=== PATIENT | female | born 1965 | race Caucasian/White ===

== ENCOUNTER → 2017-09-11 08:09 | Outpatient (CLI) | payer OTHER, SELFPAY ==
[2017-09-11 11:22] LABS: Hematocrit 37.6 % (37-47); Hemoglobin 12.5 g/dl (12.0-15.0); Mean Corp Hgb Conc 33.2 g/gl (32-36); Mean Corpuscular Hgb 31.5 pg (27.0-32.0); Mean Corpuscular Volume 94.7 fL (81-99); Mean Platelet Vol. 10.9 fl (6.2-12.0); Platelet Count 258 K/mm3 (150-450); RBC Distribution Width CV 12.9 % (11.6-14.6); RBC Distribution Width SD 43.9 fl (35.1-43.9); Red Blood Count 3.97 M/mm3 (4.2-5.4); Scan Indicated on CBC? Y/N NO; White Blood Count 5.1 K/mm3 (4.4-11.0)
[2017-09-11 11:34] LABS: Anion Gap 7 (5-15); BUN 20 mg/dL (7-18); BUN/Creat Ratio 23.5 RATIO (10-20); Calcium,Total 8.6 mg/dL (8.5-10.1); Chloride 104 mmol/L (98-107); Cholesterol 167 mg/dL (200); Creatinine, Serum 0.85 mg/dL (0.55-1.02); EST Glomerular Filtration Rate 74 mL/min (>60); Est Glom Filt Rate - Afr Amer 90 mL/min (>60); Glucose 92 mg/dL (74-106); High Density Lipoprotein 57 mg/dL; Potassium 3.6 mmol/L (3.5-5.1); Sodium Level 139 mmol/L (136-145); Triglycerides 86 mg/dL; Very Low Density Lipoprotein 17 mg/dL (5-40)
[2017-09-11 13:52] LABS: Estradiol 302.6 pg/mL; Free T3 2.8 pg/mL (2.18-3.98); T4 Free Direct 1.26 ng/dL (0.76-1.46); Thyroid Stim Hormone (TSH) 1.44 uIU/mL (0.358-3.74)
[2017-09-11 13:57] LABS: Hemoglobin A1c 5.5 % (4.2-6.3)
[2017-09-12 07:12] LABS: DHEA Sulfate 96.6 ug/dL (41.2-243.7)
[2017-09-12 09:12] LABS: Vitamin D,25 Hydroxy 19.4 ng/mL (19.95-100.01)
[2017-09-12 10:28] LABS: Progesterone Level 3.06 ng/mL (See Comment)
== END ==
PROVIDERS: Family Provider Family Medicine; PCP Family Medicine; Visit Provider Obstetrics & Gynecology
DX: Z00.00 Encounter for general adult medical examination without abnormal findings (principal); R53.83 Other fatigue
CPT/HCPCS: 36415; 80048; 80061; 82306; 82533; 82627; 82670; 83036; 84144; 84403; 84439; 84443; 84481; 85027; 82626

== ENCOUNTER → 2017-09-24 19:59 | Outpatient (CLI) | payer OTHER, SELFPAY ==
[2017-09-27 13:51] LABS: HPV Reflexed? NOT INDICATED
== END ==
PROVIDERS: Family Provider Family Medicine; PCP Family Medicine; Visit Provider Obstetrics & Gynecology
DX: Z12.4 Encounter for screening for malignant neoplasm of cervix (principal)
CPT/HCPCS: 88175; G0145

== ENCOUNTER → 2018-01-24 15:40 | Outpatient (CLI) | payer OTHER, SELFPAY ==
[2018-01-24 17:24] LABS: Estradiol 51.6 pg/mL
[2018-01-25 08:44] LABS: Progesterone Level 4.92 ng/mL (See Comment)
== END ==
PROVIDERS: Visit Provider Obstetrics & Gynecology
DX: N93.8 Other specified abnormal uterine and vaginal bleeding (principal)
CPT/HCPCS: 36415; 82670; 84144

== ENCOUNTER 2018-02-26 05:40 | Day surgery (SDC) | payer OTHER, SELFPAY ==
[2018-02-26] VITALS (11 sets, daily range): BP systolic 91–133; BP diastolic 42–75; PULSE 50–69; RESP 18; TEMP 36.4–36.8; O2SAT 95–100; BMI 24.6
--- NOTE | 2018-02-26 06:12 | HP.PCM_ITS ---
Problem List (1) Family history of malignant neoplasm of colon in first degree relative diagnosed when younger than 60 years of age Status: Acute Comment: Sister (2) Hypothyroidism (acquired) Status: Acute History of Present Illness Date of Admission: 02/26/18 The patient is a 52 year old F who had a previous colonoscopy January 2013. She had a sister who had colon cancer resected. The sister was younger than age 60. The patient herself has no abdominal pain. No bright red blood per rectum or melena. She is enjoying a good quality of life. Chronic medical issue only includes hypothyroidism.] Past Medical History Allergies doxycycline Adverse Reaction (Verified 02/25/18 12:02) Unknown Home Medications: Ambulatory Orders Medication Instructions Recorded Calcium (Elemental) [Os-Rocael 500] 500 mg PO DAILY@0800 02/25/18 Levothyroxine [Synthroid] 75 mcg PO DAILY 02/25/18 Multivitamin [Multiple Vitamins] 1 each PO DAILY 02/25/18 Progesterone,Micronized 45 mg PO DAILY 02/25/18 [Prometrium] Smoking Status: Never smoker Tobacco Use: Non-smoker - *Family History Sibling History Items: Cancer - Sister with colon cancer Review of Systems Constitutional: Denies: Anorexia Eyes: Denies: Blurred vision HEENT: Denies: Difficulty Hearing Cardiovascular: Denies: Chest Pain Respiratory: Denies: Cough Gastrointestinal: Denies: Abdominal Pain Genitourinary: Denies: Dysuria Musculoskeletal: Denies: Arm Pain Neurological: Denies: Balance problems Psychiatric: Denies: Anxiety Endocrine: Denies: Change in Body Habitus Hematologic/ Lymphatic: Denies: Adenopathy VTE Information - Inpt Only VTE Present on Admission: No Patient Problems: Active and Suspected Problems Family history of malignant neoplasm of colon in first degree relative diagnosed when younger than 60 years of age (Acute) Sister Hypothyroidism (acquired) (Acute) - Physical Exam General: Alert, Oriented x3, Cooperative, No apparent distress HEENT: Atraumatic Oral: Moist Mucosa Neck: Supple Lungs: Clear to auscultation Cardiovascular: Regular rate, Regular Rhythm Abdomen: Bowel Sounds Present, Soft, Non Tender, Non-Distended, No Hepato- splenomegaly Extremities: No clubbing, No edema Skin: No rashes Musculoskeletal: No Tenderness to Palpation of Joints or Extremities Lymphatic: No Cervical, Supraclavicular, or Inguinal Adenopathy Neurological: Cranial nerves II-XII grossly intact Psych/Mental Status: Normal Affect Assessment/Plan All Active Problems Family history of malignant neoplasm of colon in first degree relative diagnosed when younger than 60 years of age (Acute) Hypothyroidism (acquired) (Acute) I am recommending to the patient a screening colonoscopy based upon direct family members sibling who had colon cancer. The patient is aware of the technique, benefits, risks, alternatives. She has had an opportunity to ask and have questions answered. We will proceed as indicated. Arik Hamilton M.D., F.A.C.S.
--- NOTE | 2018-02-26 06:56 | PCM.OPRPT ---
Problem List (1) Family history of malignant neoplasm of colon in first degree relative diagnosed when younger than 60 years of age Status: Acute Comment: Sister (2) Hypothyroidism (acquired) Status: Acute Report of Operation Date of Procedure: 02/26/18 Pre-Operative Diagnosis: Family history of colon cancer in a sister Post-Operative Diagnosis: Normal colon, tortuous Surgery/Procedure Performed:: Colonoscopy Description of Surgical Findings:: Timeout and informed consent was obtained. 52-year-old female was taken to the endoscopy suite. She was placed in a left lateral decubitus position. Throughout the procedure in aliquots she received total 150 mg of Demerol and 5 g of Versed is intravenous sedation. Digital rectal exam demonstrated mild grade 1-2 internal and external hemorrhoids. No mass lesions. Normal anal tone. Flexible colonoscope was in the rectum advanced with tortuous sigmoid colon with a pending definitive sigmoid loop. The scope was advanced through the descending colon and the transverse colon transabdominal pressure and increased medications required to get the scope to go through the ascending colon and cecum. Fortunately the cecum ileocecal valve area that was nicely achieved photographs were obtained. Bowel prep was good with liquid stool that could be easily aspirated. The scope was carefully withdrawn from the cecum ascending colon transverse colon descending colon and sigmoid colon. There were no mucosal abnormalities identified. Patient has a very snout rectum. Retroflexed view was not possible. Antegrade view was felt to be quite good. Excess fluid and air was aspirated free the procedure was completed she tolerated it well. Impression Normal colonoscopy examination albeit for tortuous colon. Previous colonoscopy January 2013. Next colonoscopy recommended in 5 years. The scope was inserted 0632. The cecum was reached at 0645. The procedure was completed at 0653. Cc: Dr. oLc Hamilton M.D., F.A.C.S. Type of Anesthesia:: IV Sedation
== END 2018-02-26 07:32 | disposition home or self-care (01) ==
LOC: EN 05:40 → AC 05:42
PROVIDERS: Family Provider Family Medicine; PCP Family Medicine; Visit Provider Surgery
PROC: 0DJD8ZZ Inspection of Lower Intestinal Tract, Via Natural or Artificial Opening Endoscopic (ICD-10-PCS; CPT 45378; principal; 2018-02-26 06:25)
DX: Z12.11 Encounter for screening for malignant neoplasm of colon (principal); K64.1 Second degree hemorrhoids; K64.4 Residual hemorrhoidal skin tags; Z80.0 Family history of malignant neoplasm of digestive organs; E03.9 Hypothyroidism, unspecified
CPT/HCPCS: 45378; 99152; 99153; J7120

== ENCOUNTER → 2018-06-04 13:54 | Outpatient (CLI) | payer OTHER, SELFPAY ==
--- NOTE | 2018-06-04 13:58 | BI_ITS ---
MAMMOGRAPHY - BILATERAL DIAGNOSTIC REASON FOR EXAM: Female, 52 years old. One-month history of left breast lump. PERTINENT HISTORY: Non-contributory. TECHNIQUE: Digital bilateral breast irais (3D mammographic acquisition) in the CC and MLO projections. 2-D mediolateral oblique (MLO) and craniocaudad (CC) views of both breasts were obtained. CAD: Full Field Digital Mammography with Computer Added Detection was performed. COMPARISON: Comparison is made with prior study dated July 04, 2017 and June 16, 2016. FINDINGS: Breast Composition: The breasts are heterogeneously dense, which may obscure small masses. There are no dominant masses or suspicious calcifications. Stable 1.7 cm lymph node in the left axillary region. No other significant abnormalities are identified. There has been no significant change since the prior study. BI/DIAG MAMM W/CAD, BILAT IMPRESSION: Stable bilateral diagnostic mammogram. With the patient's history of a left breast lump, correlation with ultrasound is recommended. ASSESSMENT CATEGORY: BIRADS Category 0: Incomplete. Need additional imaging evaluation. A letter regarding these results will be sent to the patient by the facility within 30 days. Approximately 10% of breast cancers are not detected by mammography. A normal mammogram should not delay biopsy of a clinically suspicious abnormality. Electronically Signed: Luis Enrique Dennis MD at 15:40 EST Tel [phone], Service support ,
--- NOTE | 2018-06-04 13:58 | BI_ITS ---
MAMMOGRAPHY - BILATERAL DIAGNOSTIC REASON FOR EXAM: Female, 52 years old. One-month history of left breast lump. PERTINENT HISTORY: Non-contributory. TECHNIQUE: Digital bilateral breast robb (3D mammographic acquisition) in the CC and MLO projections. 2-D mediolateral oblique (MLO) and craniocaudad (CC) views of both breasts were obtained. CAD: Full Field Digital Mammography with Computer Added Detection was performed. COMPARISON: Comparison is made with prior study dated July 04, 2017 and June 16, 2016. FINDINGS: Breast Composition: The breasts are heterogeneously dense, which may obscure small masses. There are no dominant masses or suspicious calcifications. Stable 1.7 cm lymph node in the left axillary region. No other significant abnormalities are identified. There has been no significant change since the prior study. BI/Bilat Brst Rbob Stand Alone IMPRESSION: Stable bilateral diagnostic mammogram. With the patient's history of a left breast lump, correlation with ultrasound is recommended. ASSESSMENT CATEGORY: BIRADS Category 0: Incomplete. Need additional imaging evaluation. A letter regarding these results will be sent to the patient by the facility within 30 days. Approximately 10% of breast cancers are not detected by mammography. A normal mammogram should not delay biopsy of a clinically suspicious abnormality. Electronically Signed: Luis Enrique Dennis MD at 15:40 EST Tel [phone], Service support ,
--- NOTE | 2018-06-04 15:00 | US_ITS ---
STUDY: ULTRASOUND BREAST - LEFT REASON FOR EXAM: Female, 52 years old. Palpable lump left breast. TECHNIQUE: Axial and longitudinal images of the LEFT breast were performed with a high resolution ultrasound transducer. COMPARISON: Comparison is made with prior mammogram done earlier today. FINDINGS: LEFT Breast: The upper outer quadrant of the left breast was examined by ultrasound. There is dense fibroglandular tissue. No solid or cystic mass lesion is seen. US/Breast Limited Unilateral IMPRESSION: No sonographic abnormality is seen. ASSESSMENT CATEGORY: BIRADS Category 1: Negative. A letter regarding these results will be sent to the patient by the facility within 30 days. Electronically Signed: Luis Enrique Dennis MD at 15:29 EST Tel [phone], Service support ,
== END ==
PROVIDERS: Family Provider Family Medicine; PCP Family Medicine; Visit Provider Obstetrics & Gynecology
DX: N63.0 Unspecified lump in unspecified breast (principal)
CPT/HCPCS: 76642; 77062; 77066; G0279

== ENCOUNTER → 2018-09-25 09:54 | Outpatient (CLI) | payer OTHER, SELFPAY ==
[2018-06-11 14:58] VITALS: BMI 24.3
[2018-09-25 16:04] LABS: Hematocrit 40.2 % (37-47); Hemoglobin 13.4 g/dl (12.0-15.0); Mean Corp Hgb Conc 33.3 g/gl (32-36); Mean Corpuscular Hgb 32.1 pg (27.0-32.0); Mean Corpuscular Volume 96.2 fL (81-99); Mean Platelet Vol. 11.2 fl (6.2-12.0); Platelet Count 258 K/mm3 (150-450); RBC Distribution Width CV 12.3 % (11.6-14.6); RBC Distribution Width SD 42.1 fl (35.1-43.9); Red Blood Count 4.18 M/mm3 (4.2-5.4); White Blood Count 3.6 K/mm3 (4.4-11.0)
[2018-09-25 16:05] LABS: Scan Indicated on CBC? Y/N NO
[2018-09-25 16:12] LABS: Estradiol 59.1 pg/mL
[2018-09-25 16:22] LABS: ALB/GLOB Ratio 1.3 RATIO (0.9-2.4); AST(SGOT) 23 U/L (15-37); Alanine Aminotransfer ALT/SGPT 26 U/L (13-56); Albumin, Serum 4.2 g/dL (3.2-5.0); Alkaline Phosphatase 72 U/L (45-117); Anion Gap 7 (5-15); BUN 18 mg/dL (7-18); BUN/Creat Ratio 19.5 RATIO (10-20); Chloride 105 mmol/L (98-107); Cholesterol 190 mg/dL (200); Creatinine, Serum 0.92 mg/dL (0.55-1.02); EST Glomerular Filtration Rate 67 mL/min (>60); Est Glom Filt Rate - Afr Amer 81 mL/min (>60); Globulin 3.3 g/dL (2.2-4.2); Glucose 92 mg/dL (74-106); High Density Lipoprotein 66 mg/dL; Protein, Total 7.5 g/dL (6.4-8.2); Sodium Level 141 mmol/L (136-145); T4 Free Direct 1.31 ng/dL (0.76-1.46); Thyroid Stim Hormone (TSH) 1.02 uIU/mL (0.358-3.74); Triglycerides 51 mg/dL; Very Low Density Lipoprotein 10 mg/dL (5-40)
[2018-09-25 16:25] LABS: Vitamin D,25 Hydroxy 37.2 ng/mL (29.95-100.01)
[2018-09-29 10:07] LABS: HPV Reflexed? NOT INDICATED
== END ==
PROVIDERS: Family Provider Family Medicine; PCP Family Medicine; Visit Provider Obstetrics & Gynecology
DX: Z00.00 Encounter for general adult medical examination without abnormal findings (principal); N93.8 Other specified abnormal uterine and vaginal bleeding; E03.9 Hypothyroidism, unspecified; E55.9 Vitamin D deficiency, unspecified; Z12.4 Encounter for screening for malignant neoplasm of cervix
CPT/HCPCS: 36415; 80053; 80061; 82306; 82670; 84144; 84439; 84443; 85027; 88175; G0145

== ENCOUNTER → 2019-01-02 | Outpatient (CLI) | payer OTHER, SELFPAY ==
[2019-01-02 13:19] LABS: Progesterone Level 6.46 ng/mL (See Comment)
[2019-01-02 13:23] LABS: Estradiol 112.1 pg/mL
== END | disposition home or self-care (01) ==
PROVIDERS: Family Provider Family Medicine; PCP Family Medicine; Visit Provider Obstetrics & Gynecology
DX: R53.83 Other fatigue (principal); F39 Unspecified mood [affective] disorder
CPT/HCPCS: 36415; 82670; 84144

== ENCOUNTER 2021-09-15 12:30 | Outpatient (CLI) | payer SELFPAY ==
--- NOTE | 2021-09-15 12:46 | BI_ITS ---
MAMMOGRAPHY - BILATERAL SCREENING REASON FOR EXAM: Female, 55 years old. Routine annual screening examination. PERTINENT HISTORY: Non-contributory. TECHNIQUE: Digital bilateral breast nery (3D mammographic acquisition) in the CC and MLO projections. 2-D mediolateral oblique (MLO) and craniocaudad (CC) views of both breasts were obtained. CAD: Full Field Digital Mammography with Computer Added Detection was performed. COMPARISON: Comparison is made with prior examination dated 02/12/2020 and 06/04/2018. FINDINGS: Breast Composition: The breasts are heterogeneously dense, which may obscure small masses. There are no dominant masses or suspicious calcifications. A tissue clip marker is seen in the deep upper central portion of the left breast as well as in the anterior lateral aspect of the right breast. Stable appearance of the fat-containing left axillary lymph nodes. No other significant abnormalities are identified. BI/SCRN MAMM (CAD)W/NERY BILAT IMPRESSION: Stable bilateral screening mammogram. Yearly follow-up mammogram recommended. (A) ASSESSMENT CATEGORY: BIRADS Category 2: Benign. A letter regarding these results will be sent to the patient by the facility within 30 days. Approximately 10% of breast cancers are not detected by mammography. A normal mammogram should not delay biopsy of a clinically suspicious abnormality. [id number] Electronically Signed: Luis Enrique Dennis MD at 14:06 EST ,
== END 2021-09-15 23:59 | disposition home or self-care (01) ==
PROVIDERS: PCP Family Medicine; Referring Provider Nurse Practitioner Family; Visit Provider Nurse Practitioner Family
DX: Z12.31 Encounter for screening mammogram for malignant neoplasm of breast (principal)
CPT/HCPCS: 77063; 77067

== ENCOUNTER → 2022-09-19 | Outpatient (CLI) | payer SELFPAY ==
--- NOTE | 2022-09-19 09:32 | BI_ITS ---
MAMMOGRAPHY - BILATERAL SCREENING REASON FOR EXAM: Female, 56 years old. Routine annual screening examination. PERTINENT HISTORY: Non-contributory. TECHNIQUE: Digital bilateral breast nery (3D mammographic acquisition) in the CC and MLO projections. 2-D mediolateral oblique (MLO) and craniocaudad (CC) views of both breasts were obtained. CAD: Full Field Digital Mammography with Computer Added Detection was performed. COMPARISON: Comparison is made with prior study dated 09/15/2021 and 06/04/2018. FINDINGS: Breast Composition: The breasts are heterogeneously dense, which may obscure small masses. There are no dominant masses or suspicious calcifications. A tissue clip marker is once again seen in the deep upper central portion of the left breast as well as in the anterior lateral aspect of the right breast. Stable benign-appearing left axillary lymph node. No other significant abnormalities are identified. There has been no significant change since the prior study. BI/SCRN MAMM (CAD)W/NERY BILAT IMPRESSION: Stable bilateral screening mammogram. Yearly follow-up mammogram recommended. (A) ASSESSMENT CATEGORY: BIRADS Category 2: Benign. A letter regarding these results will be sent to the patient by the facility within 30 days. Approximately 10% of breast cancers are not detected by mammography. A normal mammogram should not delay biopsy of a clinically suspicious abnormality. [id number] Electronically Signed: Luis Enrique Dennis MD at 12:27 EST ,
== END | disposition home or self-care (01) ==
LOC: OPBI 09:28
PROVIDERS: PCP Nurse Practitioner Family; Visit Provider Nurse Practitioner Women's Health
DX: Z12.31 Encounter for screening mammogram for malignant neoplasm of breast (principal)
CPT/HCPCS: 77063; 77067

== ENCOUNTER 2023-02-27 06:09 | Day surgery (SDC) | payer SELFPAY ==
[2023-02-27] VITALS (11 sets, daily range): BP systolic 74–123; BP diastolic 38–71; PULSE 43–63; RESP 16; TEMP 36.2–36.6; O2SAT 97–100; BMI 23.4
[2023-02-27] MEDS: Lactated Ringers 1,000 ML 15 ML IV (06:33)
--- NOTE | 2023-02-27 06:43 | HP.PCM_ITS ---
[facility] - General General Date of Admission: 04/13/20 Date of Service: 02/27/23 Chief Complaint: Family history of colon cancer in his sister HPI Cooper BURGER, is a 57 F who presents for surveillance colonoscopy. Patient's previous examination was February 26, 2018. That was unremarkable at that time. She otherwise enjoys good health. She presents via open access today. [facility] Medical History (Updated 02/21/23 @ 12:33 by Violet Nugent) Family history of malignant neoplasm of colon in first degree relative diagnosed when younger than 60 years of age Fibrocystic changes of left breast History of colonic polyps Hypothyroidism (acquired) Left breast lump Non-smoker Post-menopausal Thyroid disease Wears contact lenses Wears glasses Home Medications calcium carbonate 500 mg calcium (1,250 mg) tablet 500 mg PO DAILY@0800 02/25/18 [History Last Taken Unknown] levothyroxine 75 mcg tablet 75 mcg PO DAILY 02/25/18 [History Last Taken 02/27/23 05:15] multivitamin 1 ea PO DAILY 02/25/18 [History Last Taken Unknown] cetirizine 10 mg capsule (Zyrtec) 10 mg PO DAILY PRN allergy symptoms 02/07/22 [History Last Taken Unknown] cholecalciferol (vitamin D3) 50 mcg (2,000 unit) capsule 50 mcg PO DAILY 02/07/22 [History Last Taken Unknown] fluticasone propionate 50 mcg/actuation nasal spray,suspension (Flonase Allergy Relief) 1 spray intranasal DAILY 02/07/22 [History Last Taken Unknown] omega 5-keb-aqd-fish oil 60 mg-90 mg-500 mg capsule (Fish Oil) 1 cap PO DAILY 02/07/22 [History Last Taken Unknown] Allergy/AdvReac Type Severity Reaction Status Date / Time doxycycline AdvReac Vomiting Verified 02/27/23 06:30 Family History (Updated 12/28/22 @ 12:51 by Viviane Hanson) Mother Arthritis Heart disease Sister Colon cancer Father Heart disease Hypertension Surgical History History of cervical cerclage History of colonoscopy History of dilatation and curettage History of laparoscopic cholecystectomy History of tonsillectomy and adenoidectomy Social History household members: spouse current occupational status: unemployed Smoking Status: Never smoker alcohol intake: never substance use type: does not use what type of physical activity do you participate in: walking, bicycling, swimming and weight training frequency: 5-6 times per week seatbelt use: always do you feel safe at home: Yes additional social history: - Ty ROS Constitutional Constitutional: Reports systems reviewed and no addt'l complaints, except as documented Cardiovascular Cardiovascular: Denies chest pain Respiratory/Chest Respiratory/Chest: Denies shortness of breath at rest Gastrointestinal Gastrointestinal: Denies abdominal pain, change in bowel habits, hematochezia or melena Vital Signs Vital Signs Vital Signs: 02/27/23 06:31 02/27/23 06:31 Temperature 97.6 F L Temperature Source Temporal Pulse Rate 50 L Respiratory Rate 16 Respiratory Pattern Normal Blood Pressure 121/59 H Blood Pressure Mean 79 Blood Pressure Source Monitor Blood Pressure Position Sitting Blood Pressure Location Left Arm Pulse Ox 100 Oxygen Delivery Method Room Air Weight Weight: 158 lb 11.725 oz Body Mass Index (BMI) 23.4 Physical Exam Const alert, oriented x3 and no apparent distress General Appearance: cooperative and comfortable Eyes General Eye: normal appearance of both eyes Neck General: normal visual inspection Chest inspection of chest normal Resp Effort and Inspection: able to speak in complete sentences and symmetric chest movement Auscultation: clear to auscultation bilaterally Cardio regular rate and regular rhythm GI soft to palpation, non-tender and non-distended Extremity no calf tenderness Neuro oriented x3 Psych thought process normal Assessment & Plan Assessment/Plan (1) Family history of malignant neoplasm of colon in first degree relative diagnosed when younger than 60 years of age: PLAN: 57-year-old female presents via open access today for surveillance colonoscopy based upon a sister under age 60 who had primary colon cancer. The patient otherwise enjoys good health. She has had an opportunity ask and have questions answered. We will proceed as noted. Arik Hamilton M.D., F.A.C.S.
[2023-02-27] MEDS: Midazolam 2 MG/2 ML Syringe (07:22)
--- NOTE | 2023-02-27 07:51 | OP.COLON_ITS ---
Patient Name: Ivana Riley Procedure Date: 02/27/2023 7:18 AM Date of : 1965 Age: 57 Procedure: Colonoscopy Indications: Family history of colon cancer in a first-degree relative Providers: Arik Hamilton MD Medicines: Midazolam 5 mg IV, Meperidine 100 mg IV Patient Profile: Last Colonoscopy: January 2018. Complications: No immediate complications. Procedure: Pre-Anesthesia Assessment: - Prior to the procedure, a History and Physical was performed, and patient medications and allergies were reviewed. The patient's tolerance of previous anesthesia was also reviewed. The risks and benefits of the procedure and the sedation options and risks were discussed with the patient. All questions were answered, and informed consent was obtained. Prior Anticoagulants: The patient has taken no previous anticoagulant or antiplatelet agents. ASA Grade Assessment: II - A patient with mild systemic disease. After reviewing the risks and benefits, the patient was deemed in satisfactory condition to undergo the procedure. After I obtained informed consent, the scope was passed under direct vision. Throughout the procedure, the patient's blood pressure, pulse, and oxygen saturations were monitored continuously. The adult colonoscope was introduced through the anus and advanced to the cecum, identified by appendiceal orifice and ileocecal valve. The colonoscopy was performed without difficulty. The patient tolerated the procedure well. The quality of the bowel preparation was good. The ileocecal valve was photographed. Moderate Sedation: Moderate (conscious) sedation was personally administered by the endoscopist. The following parameters were monitored: oxygen saturation, heart rate, blood pressure, and response to care. Total physician intraservice time was 15 minutes. Scope In: 7:24:22 AM Scope Withdrawal Time 0 hours 10 minutes 50 seconds Scope Out: 7:43:39 AM Total Procedure Duration Time 0 hours 19 minutes 17 seconds Findings: The perianal and digital rectal examinations were normal. The colon (entire examined portion) was significantly tortuous. Advancing the scope required using manual pressure. The exam was otherwise without abnormality. Impression: - Tortuous colon. - The examination was otherwise normal. - No specimens collected. Recommendation: - Discharge patient to home. - Resume previous diet. - Continue present medications. - Repeat colonoscopy in 5 years for surveillance. Procedure Code(s): --- Professional --- 87111, Colonoscopy, flexible; diagnostic, including collection of specimen(s) by brushing or washing, when performed (separate procedure) 52240, 59, Moderate sedation services provided by the same physician or other qualified health director of patient care performing the diagnostic or therapeutic service that the sedation supports, requiring the presence of an independent trained observer to assist in the monitoring of the patient's level of consciousness and physiological status; initial 15 minutes of intraservice time, patient age 5 years or older Diagnosis Code(s): --- Professional --- Z80.0, Family history of malignant neoplasm of digestive organs Q43.8, Other specified congenital malformations of intestine CPT copyright 2017 [employer] [place] [employer]. All rights reserved. The codes documented in this report are preliminary and upon medical records coder review may be revised to meet current compliance requirements. Arik Hamilton MD 02/27/2023 7:51:15 AM This report has been signed electronically. Number of Addenda: 0 Note Initiated On: 02/27/2023 7:18 AM
--- NOTE | 2023-02-27 07:52 | OP.CCLET_ITS ---
02/27/2023 Kinjal Lucas Re : Colonoscopy procedure for Ivana Riley Danielar Shabana This procedure was performed on Monday, February 27, 2023. My impressions and recommendations are as follows: Impressions : - Tortuous colon. - The examination was otherwise normal. - No specimens collected. Recommendations : - Discharge patient to home. - Resume previous diet. - Continue present medications. - Repeat colonoscopy in 5 years for surveillance. My findings are described in the full procedure note, which is enclosed. If I can be of further assistance, please feel free to contact me at Doctor phone number(s): Work: . Sincerely, Arik Hamilton MD 02/27/2023 7:51:15 AM This report has been signed electronically.
== END 2023-02-27 08:33 | disposition home or self-care (01) ==
LOC: EN 06:14 → AC 06:16
PROVIDERS: PCP Nurse Practitioner Family; Referring Provider Nurse Practitioner Family; Visit Provider Surgery
PROC: 0DJD8ZZ Inspection of Lower Intestinal Tract, Via Natural or Artificial Opening Endoscopic (ICD-10-PCS; CPT 45378; principal; 2023-02-27 07:10)
DX: Z12.11 Encounter for screening for malignant neoplasm of colon (principal); Q43.8 Other specified congenital malformations of intestine; E03.9 Hypothyroidism, unspecified; Z79.899 Other long term (current) drug therapy; Z80.0 Family history of malignant neoplasm of digestive organs
CPT/HCPCS: 45378; 99152; 99153; J7120

== ENCOUNTER → 2023-03-05 | Outpatient (CLI) | payer SELFPAY ==
[2023-03-05 12:00] LABS: ALB/GLOB Ratio 0.9 RATIO (0.9-2.4); AST(SGOT) 30 U/L (15-37); Alanine Aminotransfer ALT/SGPT 42 U/L (13-56); Albumin, Serum 3.9 g/dL (3.2-5.0); Alkaline Phosphatase 129 U/L (45-117); Anion Gap 5 (5-15); BUN 14 mg/dL (7-18); BUN/Creat Ratio 14.2 RATIO (10-20); Calcium,Total 9.5 mg/dL (8.5-10.1); Chloride 102 mmol/L (98-107); Cholesterol 224 mg/dL (200); Creatinine, Serum 0.98 mg/dL (0.55-1.02); EST Glomerular Filtration Rate 62 mL/min (>60); Est Glom Filt Rate - Afr Amer 75 mL/min (>60); Globulin 4.3 g/dL (2.2-4.2); Glucose 96 mg/dL (74-106); High Density Lipoprotein 90 mg/dL; Protein, Total 8.2 g/dL (6.4-8.2); Sodium Level 136 mmol/L (136-145); Triglycerides 43 mg/dL; Very Low Density Lipoprotein 9 mg/dL (5-40)
== END | disposition home or self-care (01) ==
LOC: LAB 10:55
PROVIDERS: PCP Nurse Practitioner Family; Referring Provider Nurse Practitioner Family; Visit Provider Nurse Practitioner Family
DX: E03.9 Hypothyroidism, unspecified (principal); Z13.220 Encounter for screening for lipoid disorders; Z13.29 Encounter for screening for other suspected endocrine disorder; Z13.0 Encounter for screening for diseases of the blood and blood-forming organs and certain disorders involving the immune mechanism; Z13.21 Encounter for screening for nutritional disorder; Z13.228 Encounter for screening for other metabolic disorders
CPT/HCPCS: 36415; 80053; 80061; 84443

== ENCOUNTER → 2023-03-20 | Outpatient (CLI) | payer SELFPAY ==
[2023-03-20 15:21] LABS: Absolute Lymphocyte Count 1.66 X10^3/uL (0.83-4.51); Absolute Neutrophil Count 3.4 X10^3/uL (2.0-7.7); Basophil# 0.06 X10^3/uL; Eosinophil# 0.04 X10^3/uL; Eosinophils% 0.7 % (0-5); Hematocrit 39.9 % (37-47); Hemoglobin 13.1 g/dL (12.0-15.0); Lymphocyte # 1.66 X10^3/ul (0.83-4.51); Lymphocyte % 27.9 % (19-41); Mean Corp Hgb Conc 32.8 g/dL (32-36); Mean Corpuscular Hgb 29.4 pg (27.0-32.0); Mean Corpuscular Volume 89.7 fL (81-99); Mean Platelet Vol. 11.1 fl (6.2-12.0); Monocyte# 0.78 X10^3/uL; Monocyte% 13.1 % (0-10); NRBC Flagged by Analyzer 0 % (0-5); Platelet Count 334 K/mm3 (150-450); RBC Distribution Width CV 15.1 % (11.6-14.6); RBC Distribution Width SD 50.1 fl (35.1-43.9); Red Blood Count 4.45 M/mm3 (4.2-5.4)
[2023-03-23 15:08] LABS: Alkaline Phosphatase, Serum 138 IU/L (44-121); Bone Fraction 37 % (14-68); Intestinal Fraction 9 % (0-18); Liver Fraction 54 % (18-85); PROEL- A/G Ratio 1.1 (0.7-1.7); PROEL- Albumin 4.1 g/dL (2.9-4.4); PROEL- Alpha-1 Globulin 0.3 g/dL (0.0-0.4); PROEL- Alpha-2 Globulin 0.7 g/dL (0.4-1.0); PROEL- Beta Globulin 1.2 g/dL (0.7-1.3); PROEL- Gamma Globulin 1.4 g/dL (0.4-1.8); PROEL- Globulin, Total 3.6 g/dL (2.2-3.9); PROEL- TOTAL PROTEIN 7.7 g/dL (6.0-8.5)
[2023-03-24 16:09] LABS: HPV APTIMA, High Risk Negative (Negative)
== END | disposition home or self-care (01) ==
PROVIDERS: PCP Nurse Practitioner Family; Referring Provider Obstetrics & Gynecology; Visit Provider Obstetrics & Gynecology
DX: Z12.4 Encounter for screening for malignant neoplasm of cervix (principal); R74.8 Abnormal levels of other serum enzymes; R77.1 Abnormality of globulin
CPT/HCPCS: 36415; 84075; 84080; 84165; 85025; 87624; 88175; G0145

== ENCOUNTER → 2023-09-24 | Outpatient (CLI) | payer SELFPAY ==
--- NOTE | 2023-09-24 10:40 | BI_ITS ---
MAMMOGRAPHY - BILATERAL SCREENING REASON FOR EXAM: Female, 57 years old. Routine annual screening examination. PERTINENT HISTORY: Non-contributory. TECHNIQUE: Digital bilateral breast nery (3D mammographic acquisition) in the CC and MLO projections. 2-D mediolateral oblique (MLO) and craniocaudad (CC) views of both breasts were obtained. CAD: Full Field Digital Mammography with Computer Added Detection was performed. COMPARISON: Comparison is made with prior study dated September 19, 2022 and July 15, 2022. FINDINGS: Breast Composition: The breasts are heterogeneously dense, which may obscure small masses. There are no dominant masses or suspicious calcifications. A tissue clip marker is once again seen in the deep upper central portion of the left breast. A similar appearing tissue clip marker is seen in the anterior lateral aspect of the right breast. Stable benign-appearing left axillary lymph node. No other significant abnormalities are identified. There has been no significant change since the prior study. BI/SCRN MAMM (CAD)W/NERY BILAT IMPRESSION: Stable bilateral screening mammogram. Yearly follow-up mammogram recommended. (A) ASSESSMENT CATEGORY: BIRADS Category 2: Benign. A letter regarding these results will be sent to the patient by the facility within 30 days. Approximately 10% of breast cancers are not detected by mammography. A normal mammogram should not delay biopsy of a clinically suspicious abnormality. [id number] Electronically Signed: Luis Enriqeu Dennis MD at 12:25 EST ,
--- OUTSIDE RECORDS SUMMARY | 2023-09-24 12:47 | XMS RPT_ITS | CCD ---
Author Name Unknown Address [facility] [address] [place] [address] Organization [facility] Care Team Providers Care Supplemental Manager Name Role Phone JOSE VEE DO Attending Unavailabl e PHYSICIAN, NOT RECORDED Primary Care Unavaila Janet Gill PA-C Primary Care Provider [phone] KADE DAWN Unavailable [phone] MADISON COLLIER, TAL Caputo Unavailable [phone] Moises LEVI, Queta Unavailable Unavailable [place]holt PATEL, Laurel Unavailable Unavailable Dorothy LEVI, Mica Unavailable Unavailable Unavailable Unavailable Allergies Allergy Classification Reported Allergen(s) Allergy Type Date of Onset Reaction(s) Facility (3 sources) Doxycycline Drug Allergy 07-04-2005 GI Upset [facility] Medications Current Medications Medication Drug Class(es) Dates Sig (Normalized) Sig (Original) cetirizine hydrochloride 10 mg oral tablet (2 sources) Histamine-1 Receptor Antagonist take 1 tablet by mouth once daily as needed ZyrTEC 10 mg oral tablet ; 1 daily as needed (10 mg) Comments: Medication taken as needed. OTC Completed/Discontinued Medications Medication Drug Class(es) Dates Sig (Normalized) Sig (Original) calcium carbonate 600 mg / cholecalciferol 125 unt oral tablet (1 source) Vitamin D Start: 12-29-2008 calcium carbonate/vitamin d3(CALCIUM 600 + D(3) 600 MG-125 UNIT TAB) Take one(1) tablet daily. 0 12/29/2008 Active Problems Active Problems Problem Classification Problem Date Documented Da te Episodic/Chronic Other bone disease and musculoskeletal deformities (4 sources) Osteopenia; Translations: [Other specified disorders of bone density and structure, unspecified site] 06-06-2023 Episodic Other hematologic conditions (4 sources) Increased globulin; Translations: [Abnormality of globulin] 03-05-2023 Episodic Other liver diseases (4 sources) Alkaline phosphatase raised; Translations: [Abnormal levels of other serum enzymes] 03-05-2023 Episodic Other non-epithelial cancer of skin (4 sources) Squamous cell carcinoma in situ of skin; Translations: [Carcinoma in situ of skin, unspecified] 08-30-2022 Episodic Past or Other Problems Problem Classification Problem Date Documented Date Episodic/Chronic Biliary tract disease (1 source) Biliary dyskinesia; Translations: [Other specified diseases of gallbladder] Onset: 08-27-2012 08-27-2012 Episodic Other connective tissue disease (1 source) Chronic pain of right foot; Translations: [Pain in right foot] Onset: 06-10-2021 06-10-2021 Episodic Spondylosis; intervertebral disc disorders; other back problems (2 sources) Low back pain; Translations: [Lumbar back pain] Onset: 06-10-2021 06-10-2021 Episodic Unclassified (2 sources) Hyperthyroidism - Symptoms do not include increased perspiration, weight loss, palpitations, anxiety, nervousness, fatigue, hair changes, skin changes or nail changes. Associated symptoms do not include insomnia. 09-03-2023 Unclassified (2 sources) !Patient notification of lab results - ROSALIA Lucas. The test(s) that you had done were/was blood work. The results of your testing were normal for age . You should call our office if you have any questions. Please follow up as scheduled. Note for !Patient notification of lab results : Cholesterol should still be managed with lifestyle changes- you don't need a statin at this time. Keep up the good work! 03-05-2023 Unclassified (2 sources) !Patient notification of lab results - ROSALIA Lucas. The test(s) that you had done were/was a TSH (thyroid). The results of your testing were stable for your medical condition . You should call our office if you have any questions. Please follow up as scheduled. Note for !Patient notification of lab results : Your TSH was 1.928. Thanks! 08-31-2022 Unclassified (2 sources) Hypothyroidism, Unspecified - The last clinic visit was 1 year(s) ago. Symptoms do not include weight gain, fatigue or hair loss. Note for Unspecified hypothyroidism : Feeling good on medication 08-30-2022 Unclassified (2 sources) Transition into care - The patient is transitioning into care from another physician and a summary of care was reviewed. 09-28-2021 Results Test Name Value Interpretation Reference Range Facil ity Vital Signs Date Time Vital Sign Value Performing Clinician Aurelia savage 09-03-2023 10:11050 Body height 175.26 cm [facility]urel [facility] [email or web address] [facility] [employer] [facility] 09-03-2023 10:11-050 Body mass index (BMI) [Ratio] 24.22 kg/m2 Laurel [facility]holt [facility] 09-03-2023 10:11050 Body surface area Derived from formula 1.9 m2 Laurel Overholt [facility] Hospital[facility].; [facility] [employer] [facility] 09-03-2023 10:11050 Body weight 74.39 kg Laurel [facility]olt [facility].; [facility] [employer] Hospital[facility]. 09-03-2023 10:11050 Diastolic blood pressure 62 mm[Hg] Laurel Overholt [facility] Hospital[facility].; [facility] [employer] Inc[facility] Encounters Encounter Date Encounter Type Care Provider Facility Start: 09-03-2023 End: 09-03-2023 Office outpatient visit 10 minutes KADE SMALLP-C Work Phone[facility] Start: 06-06-2023 End: 06-06-2023 Historical Summary KADE SMALLP-C Work Phone: [facility] [employer] [facility] Start: 05-04-2023 End: 05-04-2023 Procedure Order KADE PETTY CERT PHARMACY TECH-C Work Phone: [facility] [employer] [facility] [employer] [facility] Start: 05-03-2023 End: 05-03-2023 Procedure Order KADE VALDIVIAER CERT PHARMACY TECH-C Work Phone: [facility] [employer] Start: 03-05-2023 End: 03-05-2023 Lab Only KADE VALDIVIAER CERT PHARMACY TECH-C Work Phone: [facility] [employer] Start: 03-05-2023 End: 03-05-2023 Follow-up encounter KADE VALDIVIAER CERT PHARMACY TECH-C Work Phone: [employer] Start: 02-28-2023 End: 02-28-2023 Historical Summary KADE VALDIVIAER CERT PHARMACY TECH-C Work Phone: [facility] [employer] Start: 11-01-2022 ambulatory Janet Escoto on PA-C Work Phone: [facility] Start: 08-31-2022 End: 08-31-2022 Follow-up encounter KADE PETTY CERT PHARMACY TECH-C Work Phone: [employer] [employer] Start: 08-31-2022 End: 08-31-2022 Medication Refill/Order KADE VALDIVIAER CERT PHARMACY TECH-C Work Phone: [facility] [employer] Start: 08-30-2022 End: 08-30-2022 Office outpatient visit 15 minutes KADE GRAYMARCI CERT PHARMACY TECH-C Work Phone: [facility] [employer] Start: 10-12-2021 End: 10-13-2021 ambulatory JOSE VEE DO Facility:A Start: 10-12-2021 End: 10-12-2021 Patient encounter procedure JOSE VEE DO [facility] Start: 09-28-2021 End: 09-28-2021 Office outpatient new 20 minutes KADE PETTY CERT PHARMACY TECH-C Work Phone: [facility] Hospital[facility]. Procedures Date Procedure Procedure Detail Performing Clinician Start: 09-03-2023 End: 09-03-2023 Dischrg meds reconciled w/current med list KADE PETTY CERT PHARMACY TECH-C Work Phone: Start: 06-06-2023 End: 06-06-2023 Dxa bone density study 1/> sites axial skel KADE PETTY CERT PHARMACY TECH-C Work Phone: Start: 09-19-2022 End: 09-19-2022 Screening mammography Laurel Overholt MAINFRAME CONSULTANT Plan of Treatment Date Care Activity Detail Author Start: 07-18-2026 LIPID SCREEN LIPID SCREEN [facility] Start: 10-06-2024 HPV TESTING HPV TESTING [facility] Start: 10-06-2024 PAP TESTING PAP TESTING [facility] Start: 09-03-2023 Lipid panel LIPID PANEL (33551) Start: 03-Sep-2023 10:31 Request [employer].; [employer] - The Simple[employer] Fast and Elegant Tablet Sales [facility] Local[employer][email or web address] [facility] [employer]. Start: 09-03-2023 Comprehensive metabolic panel METABOLIC PANEL, COMPREHENSIVE (25465) Start: 03-Sep-2023 10:31 Request [employer] Fast and Elegant Tablet Sales [facility] [email or web address] [facility] [employer]. Start: 09-03-2023 Assay of thyroid stimulating hormone tsh TSH (45466) Start: 03-Sep-2023 10:30 Request [employer] [facility] [employer]. Start: 07-09-2023 DIABETES SCREEN DIABETES SCREEN [facility] Start: 05-03-2023 Dxa bone density study 1/> sites axial skel DEXA BONE DENSITY STUDY OF AXIAL SKELETON (08089) Start: 03-May-2023 Intent [employer] [facility] [facility] [employer]. Start: 03-30-2023 Influenza vaccination INFLUENZA (Season Ended) [facility] Start: 03-05-2023 Immunoelectrophoresis serum SERUM PROTEIN ELECTROPHORESIS (06458) - SERUM Start: 05-Mar-2023 15:30 Request [facility] Start: 03-05-2023 Assay of phosphatase alkaline isoenzymes ALKALINE PHOSPHATASE-ISOENZYM (68937) Start: 05-Mar-2023 14:35 Request [facility], [employer] [facility] Start: 02-26-2023 Colonoscopy COLONOSCOPY [facility] Start: 02-26-2023 COLORECTAL CANCER SCREENING COLORECTAL CANCER SCREENING [facility] Start: 09-15-2022 Mammography MAMMOGRAM [facility] Start: 07-30-2022 DEPRESSION ASSESSMENT DEPRESSION ASSESSMENT [facility] Start: 05-26-2022 ANNUAL PCP TEAM CHRONIC DISEASE VISIT ANNUAL PCP TEAM CHRONIC DISEASE VISIT [facility] Start: 2014 SHINGRIX VACCINE (1 of 2) SHINGRIX VACCINE (1 of 2) [facility] Start: 2009 COLOGUARD (FIT-DNA) COLOGUARD (FIT-DNA) [facility] Start: [address] COLONOGRAPHY [facility] Start: 2009 FECAL OCCULT BLOOD FECAL OCCULT BLOOD [facility] Start: 2009 SIGMOIDOSCOPY SIGMOIDOSCOPY [facility] Start: 11-28-1983 Urine microalbumin profile DTAP,TDAP,TD (1 - Tdap) [facility] Start: 1982 HEPATITIS C SCREENING HEPATITIS C SCREENING [facility] Start: 1982 HIV SCREENING HIV SCREENING [facility] Start: 05-30-1965 COVID-19 VACCINE (#1) COVID-19 VACCINE (#1) [facility] Start: 1965 HEPATITIS B (1 of 3 - 3-dose series) HEPATITIS B (1 of 3 - 3-dose series) [facility] End: 12-01-2023 VAHID SCREENING W NERY VAHID SCREENING W NERY Radiology Routine Encounter for screening mammogram for breast cancer 1 Occurrences starting 11/01/2022 until 12/01/2023 [facility] Work Phone: Immunizations Immunization Date Immunization Notes Care Provider Reyna parra 04-26-2021 influenza virus vaccine, unspecified formulation NITA Milligan PA-C Work Phone: [facility] 04-26-2021 influenza, seasonal, injectable NA Milligan PA-C Work Phone: [facility] 04-29-2020 influenza, injectabl e, quadrivalent, contains preservative NA Milligan PA-C Work Phone: [facility] 04-18-2019 influenza, seasonal, injectable NA Milligan PA-C Work Phone: [facility] Work Phone: 05-23-2018 influenza virus vaccine, unspecified formulation NA Milligan PA-C Work Phone: [facility] 05-04-2017 influenza virus vaccine, unspecified formulation NA Milligan PA-C Work Phone: [facility] influenza virus vaccine, unspecified formulation KADE PETTY CERT PHARMACY TECH-C Work Phone: [facility] [employer]; [facility] Payers Date Payer Category Payer Self-pay 1965 Unknown [id number] Unknown 1500 FORM Social History Date Type Detail Facility [facility] Sex Assigned At Female [facility] Start: 01-23-2013 [facility] tobacco [facility] Start: 01-23-2013 Tobacco use and exposure Smoke less tobacco non-user [facility] Start: 06-16-2021 Alcohol intake Current non-dr edge inker of alcohol (finding) [facility] Start: 09-07-2020 End: 05-24-2021 History SDOH Alcohol Frequency 2 [facility] Start: 09-07-2020 History SDOH Alcohol Std Drinks 1 [facility] Start: 09-07-2020 History SDOH Social Connections Phone 5 [facility] Start: 09-07-2020 History SDOH Social Connections Get Together 4 [facility] Start: 09-07-2020 History SDOH Social Connections Cheondoism 3 [facility] Start: 09-07-2020 History SDOH Physica l Activity MPS 6 [facility] Start: 08-16-2019 Education 15 [facility] Start: 1965 Sex Assigned At Not on file C [facility] Alcohol Use: Alcohol Use: ; Y es for Alcohol Use. [facility] [employer] [facility]; [facility] Current Work/Study Status Current Work/Study Status [facility]; [facility] Tobacco use: Tobacco use: ; N ever smoker. [facility]; [facility] Clinical Note 11-01-2022 Note Date & Type Note Facility 11-01-2022 Note Patient Outreach (IN TMMN) EUGENIE BURGER ([id number]) 1965 [facility] Date Time Provider Department 11/01/22 Janet MILLIGAN During your visit today, we recorded the following information about you: Allergies As of Date: 11/01/2022 Noted Allergy Reaction VIBRAMYCIN (DOXYCYCLINE) 07/04/2005 8 - GI Upset Date Reviewed: 06/16/2021 Reviewed by: Aliya Armando RN - Fully Assessed Visit Diagnosis:Encounter for screening mammogram for breast cancer [Z12.31] Order(s):[facility] SCREENING W NREY [[id number]] Order #: [id number] FUTURE Prescriptions as of 11/06/2022 - levothyroxine (SYNTHROID) 75 mcg tablet TAKE 1 TABLET BY MOUTH ONCE DAILY ON EMPTY STOMACH FOR THE THYROID - tiZANidine (ZANAFLEX) 4 mg tablet Take 1 tablet by mouth every 8 hours as needed for muscle spasms - diclofenac XR (VOLTAREN-XR) 100 mg Tb24 Take 100 mg by mouth once daily as needed. - fluticasone propionate (FLONASE NASAL) Use in the nose. - MULTIVITAMIN ORAL Take by mouth. - calcium carbonate/vitamin d3(CALCIUM 600 + D(3) 600 MG-125 UNIT TAB) Take one(1) tablet daily. Problem List As Of Date 11/01/2022 Noted Resolved Biliary dyskinesia [K82.8] 08/27/2012 Encounter for screening for malignant neoplasm *01/14/2013 Hypothyroidism, acquired [E03.9] 09/09/2020 Chronic heel pain, right [M79.671, G89.29] 06/10/2021 Lumbar back pain [M54.50] 06/10/2021 Acute bilateral low back pain with bilateral sc*06/10/2021 Encounter Status:Closed by [employer] PRODUSER on 11/06/22 [facility] Evaluation + Plan note Note Date & Type Note Facility Evaluation + Plan note No data available for this section [facility] Evaluation note Note Date & Type Note Facility documented in this encounter [facility] Discharge instructions Note Date & Type Note Facility Hospital Discharge instructions No data available for this section [facility] Reason for referral (narrative) Diagnostic Procedure Only (Routine) - Pending Review Note Date & Type Note Facility Referral ID Status Reason Start Date Expiration Date Visits Requested Visits Authorized [id number] Pending Review Auto-Generat ed Referral 11/01/2022 12/01/2023 1 1 [facility] Summary Purpose Family History Brother (s) Status:Active Comments:In good health. Father Status:Active Comments: d, Lung CA, Aneurysm Mother Status:Active Comments:In good health. HTN, CAD Sister (s) Status:Active Comments:In good health. Colon Cancer, Carotid Artery Stenosis Brother (s) Status:Active Comments:In good health. Father Status:Active Comments: d, Lung CA, Aneurysm Mother Status:Active Comments:In good health. HTN, CAD Sister (s) Status:Active Comments:In good health. Colon Cancer, Carotid Artery Stenosis Advance Directives No Advanced Directives Records FoundNo Advanced Directives Records FoundNo Advanced Directives Records FoundNo Advanced Directives Records FoundNo Advanced Directives Records Found Additional Source Comments INFORMATION SOURCE (unrecogn ized section and content) DATE CREATED AUTHOR AUTHOR'S ORGANIZ ATION 10/04/2020 [facility] DATE CREATED AUTHOR AUTHOR'S ORGANIZ ATION 09/06/2021 [facility] dical Specialist DATE CREATED AUTHOR AUTHOR'S ORGANIZ ATION 08/31/2022 [facility] ([place]) DATE CREATED AUTHOR AUTHOR'S ORGANIZ ATION 11/10/2022 [facility] Source Comments (unrecognize d section and content) In the event this informatio n is protected by the Federal Confidentiality of Alcohol and Drug Abuse Patient Records regulations: The Federal rules restrict any use of the information to criminally investigate or prosecute any alcohol or drug abuse patient.[facility] Care Teams (unrecognized sec tion and content) FOR RECORDS PERTAINING TO PATIENTS WHO ARE OR HAVE BEEN ENROLLED IN A CHEMICAL DEPENDENCY/SUBSTANCEABUSE PROGRAM, SOME INFORMATION MAY BE OMITTED. This clinical summary was aggregated from multiple sources. Caution should be exercised in using it in the provision of clinical care. This summary normalizes information from multiple sources, and as a consequence, information in this document may materially change the coding, format and clinical context of patient data. In addition, data may be omitted in some cases. CLINICAL DECISIONS SHOULD BE BASED ON THE PRIMARY CLINICAL RECORDS. [employer] provides no warranty or guarantee of the accuracy or completeness of information in this document.
== END | disposition home or self-care (01) ==
LOC: OPBI 10:40
PROVIDERS: PCP Nurse Practitioner Family; Visit Provider Obstetrics & Gynecology
DX: Z12.31 Encounter for screening mammogram for malignant neoplasm of breast (principal)
CPT/HCPCS: 77063; 77067

== ENCOUNTER → 2024-05-05 | Outpatient (CLI) | payer SELFPAY ==
[2024-05-05 13:22] LABS: Ferritin 16 ng/mL (8-252); Iron 111 ug/dL (50-170); T4 Free Direct 1.23 ng/dL (0.76-1.46)
== END | disposition home or self-care (01) ==
PROVIDERS: PCP Nurse Practitioner Family; Referring Provider Nurse Practitioner Family; Visit Provider Nurse Practitioner Family
DX: E03.9 Hypothyroidism, unspecified (principal); E61.1 Iron deficiency
CPT/HCPCS: 36415; 82728; 83540; 84439; 84443

== ENCOUNTER → 2024-06-30 | Outpatient (CLI) | payer SELFPAY ==
--- NOTE | 2024-06-30 14:26 | US_ITS ---
HISTORY: RLQ PAIN, OVARIAN CYST. TECHNIQUE: Transabdominal pelvic ultrasound was performed with burkett scale and color Doppler evaluation. 73 images. COMPARISON: None. FINDINGS: UTERUS: 6.8 x 4.3 x 2.9 cm. Anteverted. Small Nabothian cyst noted in the cervix. ENDOMETRIAL THICKNESS: 3 mm with small calcification. RIGHT OVARY: 1.3 x 1.8 x 1.8 cm. Prominent adnexal vessels. No adnexal masses. LEFT OVARY: 1.1 x 1.5 x 1.8 cm. Prominent adnexal vessels. No adnexal masses. FREE FLUID: None. URINARY BLADDER: Unremarkable at 298 cc. US/Pelvic (Non ) IMPRESSION: Unremarkable ultrasound of the uterus and ovaries. Prominent adnexal vessels noted. Electronically Signed: Mecca Evans MD at 9:59 EST ,
== END | disposition home or self-care (01) ==
PROVIDERS: PCP Nurse Practitioner Family; Referring Provider Nurse Practitioner Family; Visit Provider Nurse Practitioner Family
DX: R10.31 Right lower quadrant pain (principal)
CPT/HCPCS: 76856

== ENCOUNTER → 2024-09-03 | Outpatient (CLI) | payer SELFPAY ==
[2024-09-04 11:08] LABS: Giardia Lamblia, Stool EIA Negative (Negative)
== END | disposition home or self-care (01) ==
PROVIDERS: PCP Nurse Practitioner Family; Referring Provider Student in an Organized Health Care Education/Training Program; Visit Provider Student in an Organized Health Care Education/Training Program
DX: K59.00 Constipation, unspecified (principal)
CPT/HCPCS: 87329

== ENCOUNTER → 2024-09-30 | Outpatient (CLI) | payer SELFPAY ==
--- NOTE | 2024-09-30 09:15 | BI_ITS ---
PROCEDURE: SCRN MAMM (CAD)W/NERY BILAT REASON FOR EXAM: F, Age 58 y/o, presents for annual screening mammogram. No family history of breast cancer. TECHNIQUE: Bilateral screening digital breast tomosynthesis with 2D and 3D images. Computer aided detection. COMPARISON: 09/24/2023, 09/19/2022 FINDINGS: The breasts are heterogeneously dense which may obscure small masses. The mammogram demonstrates that the patient has dense breasts. Supplemental screening with whole breast ultrasound or MRI may be considered for further evaluation. No suspicious masses, areas of developing architectural distortion, or suspicious calcifications. BI/SCRN MAMM (CAD)W/NERY BILAT IMPRESSION: There is no mammographic evidence of malignancy. BI-RADS 1: NEGATIVE. RECOMMEND ANNUAL MAMMOGRAPHIC SCREENING. Follow-up code: Routine Follow-up The patient will be notified of the results by letter. Reading Location: [id number]
== END | disposition home or self-care (01) ==
PROVIDERS: PCP Nurse Practitioner Family; Referring Provider Obstetrics & Gynecology; Visit Provider Obstetrics & Gynecology
DX: Z12.31 Encounter for screening mammogram for malignant neoplasm of breast (principal)
CPT/HCPCS: 77063; 77067

== ENCOUNTER 2024-10-28 12:37 | Day surgery (SDC) | payer SELFPAY ==
[2024-10-28] VITALS (11 sets, daily range): BP systolic 103–147; BP diastolic 47–73; PULSE 52–85; RESP 14–16; TEMP 36.3–36.4; O2SAT 99–100; BMI 24.0
--- NOTE | 2024-10-28 13:47 | PCM.HP.STD ---
HPI - General General Date of Admission: 10/28/24 Date of Service: 10/28/24 Chief Complaint: Screening colonoscopy HPI Narrative EUGENIE BURGER, is a 58 F who presents for screening colonoscopy. She also has been having constipation and RLQ pain. Pt has had issues with inconsistent bowel movements for a long time. In February 2024, she had a functional wellness blood panel that showed her iron and ferritin was very low. She started taking beef liver supplements for this. On this panel, she also notes having a positive BAO. Following this, in May 2024 pt started having constipation and RLQ pain. She has undergone two CT abd/pelvis to evaluate this and was found to be constipated. SHe has never struggled this much with constipation. She has tried increasing her fiber on top of her already healthy eating habits. She has tried cutting out diary, eggs and gluten. None of these efforts have relieved her constipation. When she does have BMs they are soft and narrow stool caliber. She feels that something may be obstructing in her colon. She has a family hx of colon cancer in her sister who was 50 yo at diagnosis. Pt last had a colonoscopy in February 2023 that was normal with no polyps. [facility] Medical History Osteopenia Wears glasses Wears contact lenses Post-menopausal Thyroid disease Non-smoker History of colonic polyps Fibrocystic changes of left breast Left breast lump Hypothyroidism (acquired) Family history of malignant neoplasm of colon in first degree relative diagnosed when younger than 60 years of age Home Medications ?Medication ?Instructions ?Recorded ?Last Taken ?Type omega 3-rnv-ats-fish oil 60 mg-90 1 cap PO DAILY 02/07/22 10/22/24 History mg-500 mg capsule (Fish Oil) cyanocobalamin-liver extract tablet 1 tab PO DAILY 03/24/24 10/27/24 History levothyroxine 75 mcg tablet 88 mcg PO QHS 03/24/24 Unknown History estradiol 0.5 mg tablet 0.5 mg PO DAILY HRT 10/27/24 Unknown History magnesium glycinate 100 mg (as 500 mg PO DAILY 10/27/24 Unknown History glycinate) tablet (Mag Glycinate) progesterone micronized 100 mg 100 mg PO DAILY HRT 10/27/24 Unknown History capsule testosterone cypionate 100 mg/mL 10 mg IM .2XWEEK 10/27/24 Unknown History intramuscular oil vitamin D3 125 mcg (5,000 1 cap PO SUMOWEFR 10/27/24 10/26/24 History unit)-vitamin K2 100 mcg capsule Allergy/AdvReac Type Severity Reaction Status Date / Time doxycycline AdvReac Vomiting Verified 10/28/24 13:08 Family History Mother Arthritis Heart disease Sister Colon cancer Father Heart disease Hypertension Surgical History History of colonoscopy History of cervical cerclage History of dilatation and curettage History of laparoscopic cholecystectomy History of tonsillectomy and adenoidectomy Social History household members: spouse current occupational status: unemployed Smoking Status: Never smoker alcohol intake: never substance use type: does not use what type of physical activity do you participate in: walking, bicycling, swimming and weight training frequency: 5-6 times per week seatbelt use: always do you feel safe at home: Yes additional social history: - Ty ROS Constitutional Constitutional: Reports systems reviewed and no addt'l complaints, except as documented Cardiovascular Cardiovascular: Denies chest pain Respiratory/Chest Respiratory/Chest: Denies shortness of breath at rest Gastrointestinal Gastrointestinal: Denies abdominal pain, change in bowel habits, hematochezia or melena Vital Signs Vital Signs Vital Signs: 10/28/24 13:10 10/28/24 13:10 Temperature 97.5 F L Temperature Source Temporal Pulse Rate 56 L Respiratory Rate 14 Respiratory Pattern Normal Blood Pressure 136/67 H Blood Pressure Mean 90 Blood Pressure Source Monitor Blood Pressure Position Semi-Fowlers Blood Pressure Location Right Arm Pulse Ox 100 Oxygen Delivery Method Room Air Weight Weight: 158 lb 1.143 oz Body Mass Index (BMI) 24.0 Physical Exam Const alert, oriented x3, no apparent distress and healthy appearing General Appearance: cooperative GI normal to inspection, nondistended, normoactive bowel sounds, soft to palpation, non-tender and non-distended Percussion: normal to percussion Rectal Exam: deferred Assessment & Plan Assessment/Plan (1) RLQ abdominal pain: (2) Constipation: (3) Encounter for screening for malignant neoplasm of colon: PLAN: Assessment and Plan Assessment and Plan (1) Constipation: Status: Acute (2) RLQ abdominal pain: Status: Acute Plan: This is a 58 yo female here today for evaluation of constipation. She has had some constipation in the past but never to this extent. She is very active and eats a healthy diet. Due to the new onset of this constipation and family hx of colon cancer, she will undergo colonoscopy to rule out inflammation or malignancy. I will also order stool testing in the mean time, to rule out enteric pathogens, inflammation or EPI. She prefers to treat her constipation with natural measures like kiwi, coconut oil and coffee. We can consider medical therapy in the future if her constipation is refractory to conservative measures. -Colonoscopy -Stool testing -Continue high fiber diet -f/u if needed Orders: Orders ENTERIC PATHOGEN PANEL STOOL Today K58.9 - Irritable bowel syndrome, unspecified, K59.00 - Constipation, unspecified Giardia Lamblia, Stool EIA Today K59.00 - Constipation, unspecified Calprotectin, Stool Today K59.00 - Constipation, unspecified CDIFF (PCR) Today K59.00 - Constipation, unspecified Pancreatic Elastase, Fecal Today K59.00 - Constipation, unspecified
[2024-10-28] MEDS: Midazolam 5 MG/ML Syringe (14:12)
--- NOTE | 2024-10-28 14:35 | OP.CCLET_ITS ---
10/28/2024 Kinjal Escobar Re : Colonoscopy procedure for Ivana Riley Dear Rodger This procedure was performed on Monday, October 28, 2024. My impressions and recommendations are as follows: Impressions : - Redundant colon. - The examination was otherwise normal on direct and retroflexion views. - No specimens collected. Recommendations : - Discharge patient to home. - Resume previous diet. - Continue present medications. - Repeat colonoscopy in 5 years for surveillance. My findings are described in the full procedure note, which is enclosed. If I can be of further assistance, please feel free to contact me at . Sincerely, Rojelio Chin, 10/28/2024 2:34:52 PM This report has been signed electronically.
--- NOTE | 2024-10-28 14:35 | OP.COLON_ITS ---
Patient Name: Ivana Riley Procedure Date: 10/28/2024 1:52 PM Date of : 1965 Age: 58 Procedure: Colonoscopy Indications: Screening for colorectal malignant neoplasm, Screening in patient at increased risk: Colorectal cancer in sister before age 60 Providers: Rojelio Chin DO Referring MD: Sol Soares Np-mague Medicines: Midazolam 5 mg IV, Meperidine 100 mg IV Patient Profile: This is a 58 year old female. Refer to note in patient chart for documentation of history and physical. Last Colonoscopy: 5 years ago. Complications: No immediate complications. Procedure: Pre-Anesthesia Assessment: - Prior to the procedure, a History and Physical was performed, and patient medications and allergies were reviewed. The patient is competent. The risks and benefits of the procedure and the sedation options and risks were discussed with the patient. All questions were answered and informed consent was obtained. Patient identification and proposed procedure were verified by the physician in the pre-procedure area. Mental Status Examination: alert and oriented. Airway Examination: normal oropharyngeal airway and neck mobility. Respiratory Examination: clear to auscultation. CV Examination: normal. ASA Grade Assessment: II - A patient with mild systemic disease. After reviewing the risks and benefits, the patient was deemed in satisfactory condition to undergo the procedure. The anesthesia plan was to use moderate sedation / analgesia (conscious sedation). Immediately prior to administration of medications, the patient was re-assessed for adequacy to receive sedatives. The heart rate, respiratory rate, oxygen saturations, blood pressure, adequacy of pulmonary ventilation, and response to care were monitored throughout the procedure. The physical status of the patient was re-assessed after the procedure. After I obtained informed consent, the scope was passed under direct vision. Throughout the procedure, the patient's blood pressure, pulse, and oxygen saturations were monitored continuously. The Colonoscope was introduced through the anus and advanced to the cecum, identified by appendiceal orifice and ileocecal valve. The colonoscopy was performed without difficulty. The patient tolerated the procedure well. The quality of the bowel preparation was adequate. The ileocecal valve, appendiceal orifice, and rectum were photographed. Moderate Sedation: Moderate (conscious) sedation was administered by the nurse and supervised by the endoscopist. The following parameters were monitored: oxygen saturation, heart rate, blood pressure, and response to care. Total physician intraservice time was 15 minutes. Scope In: 2:09:23 PM Scope Withdrawal Time 0 hours 8 minutes 24 seconds Scope Out: 2:29:43 PM Total Procedure Duration Time 0 hours 20 minutes 20 seconds Findings: The perianal and digital rectal examinations were normal. The sigmoid colon, hepatic flexure and ascending colon were mildly redundant. The exam was otherwise without abnormality on direct and retroflexion views. Impression: - Redundant colon. - The examination was otherwise normal on direct and retroflexion views. - No specimens collected. Recommendation: - Discharge patient to home. - Resume previous diet. - Continue present medications. - Repeat colonoscopy in 5 years for surveillance. Procedure Code(s): --- Professional --- G0105, Colorectal cancer screening; colonoscopy on individual at high risk 37377, 58, Moderate sedation services provided by the same physician or other qualified health spiritual care coordinator performing the diagnostic or therapeutic service that the sedation supports, requiring the presence of an independent trained observer to assist in the monitoring of the patient's level of consciousness and physiological status; initial 15 minutes of intraservice time, patient age 5 years or older CPT copyright 2021 [employer]. All rights reserved. The codes documented in this report are preliminary and upon professional fee coder review may be revised to meet current compliance requirements. Rojelio Chin DO 10/28/2024 2:34:52 PM This report has been signed electronically. Number of Addenda: 0 Note Initiated On: 10/28/2024 1:52 PM
== END 2024-10-28 15:21 | disposition home or self-care (01) ==
LOC: EN 12:48 → AC 12:49
PROVIDERS: PCP Nurse Practitioner Family; Referring Provider Nurse Practitioner Family; Visit Provider Internal Medicine Gastroenterology
PROC: 0DJD8ZZ Inspection of Lower Intestinal Tract, Via Natural or Artificial Opening Endoscopic (ICD-10-PCS; CPT 45378; principal; 2024-10-28 13:40)
DX: Z12.11 Encounter for screening for malignant neoplasm of colon (principal); Z80.0 Family history of malignant neoplasm of digestive organs; K58.9 Irritable bowel syndrome, unspecified; K59.00 Constipation, unspecified; E03.9 Hypothyroidism, unspecified; M85.80 Other specified disorders of bone density and structure, unspecified site; Z90.49 Acquired absence of other specified parts of digestive tract; Z79.890 Hormone replacement therapy
CPT/HCPCS: 45378; 99152; 99153; A4216